=== PATIENT | male | born 1980 | race Caucasian/White ===

== ENCOUNTER 2019-03-15 17:43 | Emergency (ER) | payer MEDICAID ==
[~2019-03-15] VITALS: Ht 193 cm; Wt 105.0 kg
[2019-03-15 20:30] VITALS: BP 140/78
[2019-03-15] MEDS ORDERED: fentaNYL/PF 50MCG/1 ML 2ML syringe ONE ×2 (20:50→20:52)
[2019-03-15] MEDS ORDERED: MIDAZolam 5mg/5ml vial ONE (20:51)
[2019-03-15] MEDS ORDERED: LIDOcaine Viscous 15ml cup ONE (20:51)
[2019-03-15 21:31] VITALS: BP 127/78
[2019-03-15 21:41] VITALS: BP 128/92
[2019-03-15 21:51] VITALS: BP 139/76
[2019-03-15 22:01] VITALS: BP 132/93
[2019-03-15 23:29] VITALS: BP 119/85
== END 2019-03-15 23:31 | disposition home or self-care (01) ==
LOC: ER 17:44
DX: T18.128A Food in esophagus causing other injury, initial encounter (principal); F12.90 Cannabis use, unspecified, uncomplicated; Z88.5 Allergy status to narcotic agent; Y92.89 Other specified places as the place of occurrence of the external cause
CPT/HCPCS: 43215; 43239; 99152; 99153; 99285; J2250; J3010; J7040; A4620

== ENCOUNTER 2021-05-02 16:46 | Emergency (ER) | payer MEDICAID ==
[~2021-05-02] VITALS: Ht 193 cm; Wt 95.9 kg
[2021-05-02 17:31] LABS: HEMATOCRIT 44.4 % (42.0-52.0); HEMOGLOBIN 15.2 g/dl (14.0-17.9); RED CELL DISTRIBUTION WIDTH 12.9 % (11.5-14.5)
[2021-05-02 17:33] LABS: BASOPHILS % (AUTO) 0.6 % (0-1); EOSINOPHILS # (AUTO) 0.1 X10'3 (0-0.9); EOSINOPHILS % (AUTO) 0.9 % (0-6); LYMPHOCYTES # (AUTO) 2.2 X10'3 (1.1-4.8); LYMPHOCYTES % (AUTO) 26.1 % (21-51); MEAN CORPUSCULAR HEMOGLOBIN 31.8 PG (27.0-31.0); MEAN CORPUSCULAR HGB CONC 34.2 g/dL (33.0-36.5); MEAN CORPUSCULAR VOLUME 92.9 FL (78-98); MEAN PLATELET VOLUME 9.3 FL (7.4-10.4); MONOCYTES # (AUTO) 0.9 X10'3 (0-0.9); MONOCYTES % (AUTO) 10.4 % (2-12); NEUTROPHILS # (AUTO) 5.2 X10'3 (1.8-7.7); PLATELET COUNT 255 X10'3 (140-440); RED BLOOD COUNT 4.78 X10'6 (4.70-6.10); WHITE BLOOD COUNT 8.4 X10'3 (4.5-11.0)
[2021-05-02 17:51] LABS: ALANINE AMINOTRANSFERASE 30 U/L (12-78); ALBUMIN 4.3 G/DL (3.4-5.0); ALBUMIN/GLOBULIN RATIO 1.3 (1.1-1.5); ALKALINE PHOSPHATASE 54 IU/L (46-116); ANION GAP 10 (8-16); ASPARTATE AMINO TRANSFERASE 15 U/L (10-37); BILIRUBIN,TOTAL 0.4 MG/DL (0.1-1.0); BLOOD UREA NITROGEN 14 MG/DL (7-18); BUN/CREATININE RATIO 18.7 (5.4-32.0); CHLORIDE 108 MMOL/L (99-107); CREATININE 0.75 MG/DL (0.60-1.10); GLUCOSE 99 MG/DL (70-104); POTASSIUM 3.8 MMOL/L (3.5-5.1); SODIUM 144 MMOL/L (135-145); TOTAL CARBON DIOXIDE 26.4 MMOL/L (24-32); TOTAL PROTEIN 7.7 G/DL (6.4-8.2); eGFR > 90 ML/MIN
--- NOTE | 2021-05-02 18:32 | NUR ---
PT SEEN AND TREATED BY MAIDA Thornton PRIOR TO BEING SEN BY NURSING STAFF . MAIDA ASSESSED TREATED AND DISCHARGED PATIENT FROM T2 . MAIDA STATED HE WILL REVIEW DISCHARGE INSTRUCTIONS WITH PATIENT AND EVALUATE PATIENT PRIOR DISCHARGE .
--- NOTE | 2021-05-02 18:37 | NUR ---
DISCHARGED INSTRUCTIONS ALSO REVIEWED AND DISCUSSED WITH PATIENT . PT VERBALIZED UNDERSTANDING . DISCHARGED HOME STABLE STEADY GAIT . NO QUESTIONS ASKED
[2021-05-02 18:41] VITALS: BP 133/83
== END 2021-05-02 18:40 | disposition home or self-care (01) ==
LOC: ER 16:47
DX: R07.89 Other chest pain (principal); R06.02 Shortness of breath; F12.90 Cannabis use, unspecified, uncomplicated; Z98.890 Other specified postprocedural states; Z72.89 Other problems related to lifestyle; Z88.5 Allergy status to narcotic agent
CPT/HCPCS: 36415; 71045; 80053; 83880; 84484; 85025; 93005; 99285